=== PATIENT | male | born 1960 | race Caucasian/White ===

== ENCOUNTER → 2024-07-27 | Outpatient (CLI) | payer BC, MEDICARE ==
--- NOTE | 2024-07-27 18:16 | US ---
EXAMINATION TYPE: US kidneys/renal and bladder DATE OF EXAM: 07/27/2024 COMPARISON: NONE CLINICAL INDICATION: Male, 64 years old with history of R94.4 ABNORMAL RESULTS OF KIDNEY FUNCTION DRAKE DIES; Decreased GFR TECHNIQUE: Grayscale imaging of the bilateral kidneys and urinary bladder: FINDINGS: EXAM MEASUREMENTS: Right Kidney: 9.5 x 4.8 x 4.7 cm Left Kidney: 10.3 x 4.4 x 5.2 cm Right Kidney: No hydronephrosis or masses seen Left Kidney: No hydronephrosis or masses seen Bladder: Appears wnl Bilateral Jets seen: No, only left jet was seen No hydronephrosis or solid renal masses. No cortical thinning. Cortical medullary differentiation is maintained bilaterally. No nephrolithiasis. Urinary bladder is anechoic. Only the left ureteral jet w as identified. IMPRESSION: No hydronephrosis or nephrolithiasis. [facility], , 07/27/2024 6:14 PM
== END | disposition home or self-care (01) ==
LOC: RADUSWWP 16:19 → MERGE 16:30
PROVIDERS: ATTEND Family Medicine
DX: R94.4 Abnormal results of kidney function studies (principal)
CPT/HCPCS: 76770